=== PATIENT | female | born 1945 | race Caucasian/White ===

== ENCOUNTER 2019-06-06 13:04 | Emergency (ER) | payer MEDICARE, OTHER ==
[~2019-06-06] VITALS: Ht 176.5 cm; Wt 79.5 kg
[2019-06-06 13:22] VITALS: BP 121/73
[2019-06-06] MEDS ORDERED: IBUP-1985 PO (15:24)
== END 2019-06-06 15:47 | disposition home or self-care (01) ==
LOC: ER 13:04
DX: S60.211A Contusion of right wrist, initial encounter (principal); Z88.2 Allergy status to sulfonamides; W18.09XA Striking against other object with subsequent fall, initial encounter; Y93.01 Activity, walking, marching and hiking; Y92.89 Other specified places as the place of occurrence of the external cause; Y99.9 Unspecified external cause status
CPT/HCPCS: 29125; 73110; 99284

== ENCOUNTER 2024-08-19 21:52 | Emergency (ER) | payer MEDICARE ==
[~2024-08-19] VITALS: Ht 175.3 cm; Wt 81.8 kg
[~2024-08-19 21:52] MED LIST: IBUP-1985 PO
[2024-08-19 22:00] VITALS: TEMP 98.1
[2024-08-20] MEDS: ondansetron 4mg rapidly disintigrating tab PO ONE (01:41)
[2024-08-20] MEDS: HYDROcodone/acetaminophen 5mg/325mg tablet PO ONE (01:42)
[2024-08-20 02:41] LABS: BASOPHILS % (AUTO) 0.7 % (0-1); EOSINOPHILS # (AUTO) 0.1 X10'3 (0-0.9); HEMATOCRIT 44.9 % (35.0-45.0); LYMPHOCYTES # (AUTO) 1.1 X10'3 (1.1-4.8); LYMPHOCYTES % (AUTO) 15.8 % (21-51); MEAN CORPUSCULAR HEMOGLOBIN 30.9 PG (27.0-31.0); MEAN CORPUSCULAR HGB CONC 33.5 g/dL (33.0-36.5); MEAN CORPUSCULAR VOLUME 92.3 FL (78-98); MEAN PLATELET VOLUME 8.7 FL (7.4-10.4); MONOCYTES # (AUTO) 0.4 X10'3 (0-0.9); MONOCYTES % (AUTO) 6.3 % (2-12); NEUTROPHILS # (AUTO) 5.1 X10'3 (1.8-7.7); NEUTROPHILS % (AUTO) 76.2 % (42-75); PLATELET COUNT 180 X10'3 (140-440); RED BLOOD COUNT 4.87 X10'6 (4.20-5.60); RED CELL DISTRIBUTION WIDTH 13.9 % (11.5-14.5); WHITE BLOOD COUNT 6.7 X10'3 (4.5-11.0)
[2024-08-20] MEDS: acetaminophen 1,000mg/100ml IV 100 ML IV ONE (02:52)
[2024-08-20 02:57] LABS: ANION GAP 8 (8-16); BLOOD UREA NITROGEN 22 MG/DL (7-18); BUN/CREATININE RATIO 20.8 (10.0-20.0); CHLORIDE 101 MMOL/L (99-107); CREATINE KINASE 116 U/L (26-192); CREATININE 1.06 MG/DL (0.40-0.90); GLUCOSE 124 MG/DL (70-104); SODIUM 138 MMOL/L (135-145); TOTAL CARBON DIOXIDE 28.8 MMOL/L (24-32); eCRCL 46 ML/MIN; eGFR 50 ML/MIN
[2024-08-20] MEDS ORDERED: iohexol 300mg/ml 100ml inj. ONE (02:59)
[2024-08-20 03:12] LABS: POTASSIUM 4.3 MMOL/L (3.5-5.1)
[2024-08-20 04:54] LABS: D-DIMER 3.34 MG/L FEU (0-0.50)
[2024-08-20] MEDS: normal saline 1000ml 1,000 ML IV ONE (05:03)
[2024-08-20] MEDS: ketorolac trometh 15mg/ml vial 15 MG/ML ML IV ONE (05:04)
[2024-08-20] MEDS: fentaNYL/PF 50MCG/1 ML 2ML syringe IV ONE (05:08)
[2024-08-20] MEDS ORDERED: HYDR-3965 PO (05:48)
[2024-08-20] MEDS: oxyCODONE/APAP 5-325mg tablet PO ONE (07:56)
[2024-08-20 08:05] VITALS: BP 175/81; PULSE 50; RESP 14; O2SAT 94
== END 2024-08-20 08:08 | disposition home or self-care (01) ==
LOC: ER 21:53
DX: M25.551 Pain in right hip (principal); Z88.2 Allergy status to sulfonamides; Z79.1 Long term (current) use of non-steroidal anti-inflammatories (NSAID)
CPT/HCPCS: 36415; 73701; 80048; 82550; 84145; 85025; 85379; 93971; 96361; 96374; 96375; 99285; A6258; J0131; J1885; J3010; J7030; Q9967